=== PATIENT | male | born 2000 | race Caucasian/White ===

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

== ENCOUNTER 2023-02-24 13:36 | Outpatient (CLI) | payer OTHER, SELFPAY ==
--- NOTE | ~2023-02-24 | US_ITS ---
US scrotum doppler INDICATION: Left scrotal swelling TECHNIQUE: Testicular sonogram utilizing grayscale and color Doppler FINDINGS: The testes are normal in size and appearance. No focal lesions are seen. The right testes measures 5.4 x 2.5 x 3.1 cm centimeters, and the left testis measures 4.7 x 2.7 x 2.8 cm cm. There is normal vascular flow to both testes. There are small bilateral epididymal cysts. There is a small left hydrocele. There is a left varicoce le. IMPRESSION: 1. Left varicocele. 2: Small left hydrocele. 3: Small bilateral epididymal cysts measuring 5 mm or less. Reviewed, dictated and finalized at location A.
== END 2023-02-24 13:37 | disposition home or self-care (01) ==
PROVIDERS: PCP Family Medicine; Visit Provider Physician Assistant
DX: I86.1 Scrotal varices (principal); N43.3 Hydrocele, unspecified; N50.3 Cyst of epididymis
CPT/HCPCS: 76870; 93976